=== PATIENT | female | born 1990 | race Hispanic/Latino ===

== ENCOUNTER 2024-05-25 03:23 | Emergency (ER) | payer OTHER, BC ==
[~2024-05-25] VITALS: Ht 160 cm; Wt 74.4 kg
[2024-05-25] MEDS: NAPROXEN 500 MG TABLET PO ONE (03:58)
[2024-05-25 05:20] VITALS: BP 132/75; PULSE 72; RESP 18; TEMP 97.2; O2SAT 100
== END 2024-05-25 05:21 | disposition home or self-care (01) ==
LOC: EDH 03:23
DX: S76.012A Strain of muscle, fascia and tendon of left hip, initial encounter (principal); S76.011A Strain of muscle, fascia and tendon of right hip, initial encounter; S29.011A Strain of muscle and tendon of front wall of thorax, initial encounter; Z88.0 Allergy status to penicillin; Z88.5 Allergy status to narcotic agent; Z98.890 Other specified postprocedural states; V89.2XXA Person injured in unspecified motor-vehicle accident, traffic, initial encounter; Y93.89 Activity, other specified; Y92.488 Other paved roadways as the place of occurrence of the external cause; Y99.8 Other external cause status
CPT/HCPCS: 71045; 73521; 81025